=== PATIENT | male | born 2000 | race Caucasian/White ===

== ENCOUNTER 2023-11-19 08:19 | Emergency (ER) | payer BC, SELFPAY ==
--- NOTE | 2023-11-19 08:54 | ED.URI ---
HPI - URI/Sore Throat General Chief Complaint: Upper Respiratory Infection Stated Complaint: Fever, bodyache Time Seen by Provider: 11/19/23 08:54 Source: patient Mode of arrival: ambulatory Limitations: no limitations History of Present Illness HPI Narrative: Donovan is a 23-year-old male patient presenting to the clinic today with complaints of fever, body aches, sore throat, gland swelling, chills, cough, and congestion x4 days. He reports fever has been off and on highest fever was 101. MD elicited complaint: fever, cough, sore throat, rhinorrhea and nasal congestion Related Data Home Medications Medication Instructions Recorded Confirmed No Home Medications 11/19/23 11/19/23 Allergies Allergy/AdvReac Type Severity Reaction Status Date / Time No Known Allergies Allergy Verified 11/19/23 09:07 Review of Systems Review of Systems: Pertinent positives per HPI. Patient denies any rash, headache, visual changes, dizziness,shortness of breath, chest pain, palpitations, nausea, vomiting, diarrhea, constipation, abdominal pain, or any urinary issues. PMFSH Social History Social History Smoking status: Current some day smoker (once a year he states) Tobacco type: cigarettes Lack of Transportation: No Lack of Food: Never True Current Housing: Decline to Answer Concerned About Future Housing: No Difficulty Paying Gas/Electric Bills: No Difficulty Paying for Meds: No Currently Unemployed: No Education: High School Diploma/GED Difficulty w/ Childcare or Family Care: No Comments At the time of my signature, I reviewed and agree with the nursing past medical, surgical, social, and family history. There is no relevant family history pertinent to the patient complaint. Exam Narrative: General: Well-developed, well nourished, in no apparent distress Head: Normocephalic, atraumatic Eyes: Pupils equally round and reactive to light bilaterally, EOM intact, sclera and conjunctive clear, no discharge, lids normal Ears: TMs intact and clear, ear canals clear, no drainage, grossly hearing normal. Nose: Nares patent, clear discharge, no inflammation, no sinus tenderness. Mouth: Oral pharynx red without lesions or masses, good dentition, MMM. Neck: Supple, trachea midline, no enlargement of anterior or posterior cervical nodes, no thyroid masses or goiter palpable. Cardio: Regular rate and rhythm, s1 and s2 normal, no murmur appreciated. Resp: Clear to auscultation bilaterally, no rhonchi, rales, wheezing or rubs Course Course Emergency Course: Portions of this record may have been created with voice recognition software. Level of Care: Express Care Visit Vital Signs Vital signs: Vital signs reviewed MDM - URI/Sore Throat MDM Narrative Medical decision making narrative: At the time of visit patient is resting comfortably on the exam table. Patient appears to be nontoxic. Labs: COVID, influenza, and strep test were performed. Strep test was negative. COVID testing was negative. Influenza test was positive for influenza A. Plan: Patient has influenza A. Supportive measures were discussed with the patient and they voiced understanding discharge instructions and agrees to treatment plan. Return precautions reviewed Differential Diagnosis Differential diagnosis: Likely upper respiratory infection, otitis media, sinusitis, viral infection, bronchitis, influenza, pharyngitis and other (COVID) Discharge Plan Discharge Clinical Impression: Influenza A Patient Disposition: Home, Self-Care Condition: Stable Instructions: Antibiotic Form Additional Instructions: Influenza A testing was positive. COVID and strep testing was negative. May take [id number] DayQuil/NyQuil for cold/flu symptoms Increase fluids and stay well hydrated Tylenol/motrin for pain/fever Flonase and OTC antihistamines as directed
[2023-11-19 09:06] VITALS: BP 117/83; PULSE 70; RESP 16; TEMP 36.6; O2SAT 99
== END 2023-11-19 09:35 | disposition home or self-care (01) ==
PROVIDERS: Emergency Provider Nurse Practitioner Family
DX: J10.1 Influenza due to other identified influenza virus with other respiratory manifestations (principal); Z20.822 Contact with and (suspected) exposure to COVID-19
CPT/HCPCS: 87081; 87426; 87804; 87880; 99213; G0463

== ENCOUNTER 2024-02-12 13:12 | Emergency (ER) | payer BC, SELFPAY ==
--- NOTE | 2024-02-12 13:21 | ED.SKABFB ---
HPI - Skin/Abscess/Foreign Bdy General Chief complaint: Skin/Abscess/Foreign Body Stated complaint: rash Time Seen by Provider: 02/12/24 13:21 Source: patient Mode of arrival: ambulatory Limitations: no limitations History of Present Illness HPI narrative: Donovan is a 23-year-old male who presents to the clinic today with complaints of generalized rash. He states he was exposed to poison gloria on Thursday and woke up Thursday morning with a generalized, itchy rash. Most notably, his rash has spread to his face near his eyes and upper and lower extremities. He denies any fevers, chills, body aches, joint pain, swelling, or shortness of breath. Related Data Allergies Allergy/AdvReac Type Severity Reaction Status Date / Time No Known Allergies Allergy Verified 11/19/23 09:07 Review of Systems Review of Systems: Pertinent positives per HPI. Patient denies any fever, chills, headache, visual changes, dizziness, cough, runny nose, sore throat, shortness of breath, chest pain, palpitations, nausea, vomiting, diarrhea, constipation, abdominal pain, or any urinary issues. PMFSH Social History Social History Smoking status: Current some day smoker (once a year he states) Tobacco type: cigarettes Lack of Transportation: No Lack of Food: Never True Current Housing: Decline to Answer Concerned About Future Housing: No Difficulty Paying Gas/Electric Bills: No Difficulty Paying for Meds: No Currently Unemployed: No Education: High School Diploma/GED Difficulty w/ Childcare or Family Care: No Comments At the time of my signature, I reviewed and agree with the nursing past medical, surgical, social, and family history. There is no relevant family history pertinent to the patient complaint. Exam Narrative: General: Well-developed, well nourished, in no apparent distress Head: Normocephalic, atraumatic. Integumentary: Reddened, warm, dry, intact; scattered, erythematous, raised, papular lesions Course Course Emergency Course: Portions of this record may have been created with voice recognition software. Level of Care: Express Care Visit Vital Signs Vital signs: Vital Signs Temperature 37.3 C 02/12/24 13:23 Pulse Rate 93 07/19/24 13:23 Respiratory Rate 20 02/12/24 13:23 Blood Pressure 122/72 02/12/24 13:23 Pulse Oximetry 100 02/12/24 13:23 Oxygen Delivery Room Air 02/12/24 13:23 Temperature 37.3 C 02/12/24 13:23 Pulse Rate 93 02/12/24 13:23 Respiratory Rate 20 02/12/24 13:23 Blood Pressure 122/72 02/12/24 13:23 Pulse Oximetry 100 02/12/24 13:23 Oxygen Delivery Room Air 02/12/24 13:23 Vital signs reviewed MDM - Skin/Abscess/Foreign Bdy MDM Narrative Medical decision making narrative: At the time of visit patient is resting comfortably on the exam table. Patient appears to be nontoxic. Plan: I suspect patient has poison gloria dermatitis. Prescription for prednisone was sent to the pharmacy. Dexamethasone 10 mg IM given in the clinic today. Supportive measures were discussed with the patient and they voiced understanding discharge instructions and agrees to treatment plan. Return precautions reviewed Differential Diagnosis Differential diagnosis: Likely abscess of skin or subcutaneous tissue, viral exanthem, urticaria, allergic reaction to drug, cellulitis, eczema, insect bites, impetigo and contact dermatitis Discharge Plan Discharge Clinical Impression: Allergic contact dermatitis Qualifiers: Contact dermatitis trigger: non-food plants Qualified Code(s): L23.7 - Allergic contact dermatitis due to plants, except food Patient Disposition: Home, Self-Care Condition: Stable Instructions: Antibiotic Form, Poison Gloria (ED) Additional Instructions: Dexamethasone 10 mg IM given in the clinic today Apply triamcinolone cream as directed Take prednisone as directed-start on and 0
[2024-02-12 13:23] VITALS: BP 122/72; PULSE 93; RESP 20; TEMP 37.3; O2SAT 100
[2024-02-12] MEDS: dexAMETHasone SOD PHOS INJ 10 MG/ML 1 ML VIAL IM (13:39)
== END 2024-02-12 13:58 | disposition home or self-care (01) ==
PROVIDERS: Emergency Provider Nurse Practitioner Family
DX: L23.7 Allergic contact dermatitis due to plants, except food (principal)
CPT/HCPCS: 96372; 99213; G0463; J1100